=== PATIENT | female | born 1980 | race Caucasian/White ===

== ENCOUNTER → 2024-07-10 07:40 | Outpatient (REF) | payer BC, SELFPAY | LOC: WDC 07:40 | PROVIDERS: ATTENDING PHYSICIAN Obstetrics & Gynecology; FAMILY PHYSICIAN Family Medicine | DX: Z12.31 Encounter for screening mammogram for malignant neoplasm of breast (principal) | CPT/HCPCS: 77063; 77067 ==

== ENCOUNTER 2024-11-24 13:22 | Emergency (ER) | payer BC, SELFPAY ==
[2024-11-24 13:48] VITALS: BP 123/78
--- NOTE | 2024-11-24 13:54 | ED.GENMED ---
ED Provider Triage
<John Menard PA-C - Last Filed: 11/24/24 13:56>
-
Patient seen by provider in Triage?: Seen in Triage
44-year-old female presents with intermittent rapid heart rate over the past several weeks. No recent travel or surgery. She notes occasional chest discomfort. She is not on control. No recent travel or surgery no leg swelling
Physical
: General well-appearing female no acute respiratory distress
Respiratory no increased work of breathing
Neurologic alert normal gait conversing appropriately
Tachycardic at triage but otherwise vital signs are stable we will start with labs EKG troponin D-dimer as well as TSH\\
Patient seen by provider in triage but warrants further assessment
History of Present Illness
<John Menard PA-C - Last Filed: 11/24/24 13:56>
General
Chief Complaint: Heart Rate Problem
Time Seen by Provider: 11/24/24 17:50
<Isa Spicer PA-C - Last Filed: 11/24/24 20:10>
General
Source: patient
Exam Limitations: none
Nursing documentation reviewed up to this point in time: agreed with
History of Present Illness
History of Present Illness:
This is a 44-year-old female with a past medical history of anxiety who presents to the emergency department today concerns of palpitations for the past week or so. Patient states that she noticed palpitations about a week ago when she was talking
to her standing in the kitchen. She looked at her watch and noticed that her heart rate was elevated. This prompted patient to trend her heart rates for that week and she noticed that rarely would her heart rate dropped below 100. Patient
has no history of this prior. Patient reports that she even noticed that when she woke up one morning, her. No heart rate was 120. Her heart rate would even go up to the 140s at rest. She denies any fevers or chills. She states that she has
been taking care of her sick son with pneumonia but denies any cough or flulike symptoms. She states that she called nausea dose on cardiology to schedule appointment and she has an appointment scheduled in 3 days. However, today, she started to
develop chest pain that radiated into the left arm. She called cardiology group to try to get a sooner appointment date told her to report to the emergency department. She denies any associated shortness of breath. She denies any pain or swelling
in her legs. She does not take any oral contraceptives. She denies any recent long distance travel denies any recent surgeries. Her mom has afib and her sons have ASD and pulmonary stenosis, but she otherwise has no family history of cardiac
disease.
Past History
<John Menard PA-C - Last Filed: 11/24/24 13:56>
Past History
ED Past Medical History: None; Negative Asthma, HTN, Hypercholesterolemia or NIDDM
ED Past Surgical History: None
Social History
Tobacco: Non-smoker
Alcohol: Occasional
Personal:
Living: with family
Review of Systems
<Isa Spicer PA-C - Last Filed: 11/24/24 20:10>
Review of Systems
All Other Systems: ROS reviewed and negative except as documented in HPI and ROS
Phy Exam
<Isa Spicer PA-C - Last Filed: 11/24/24 20:10>
Physical Exam
Physical Exam:
General: Patient is well appearing and in no acute distress; non-toxic
Skin: Warm and dry, no rashes or lesions
Head: Normocephalic, atraumatic
Eyes: Sclera non-icteric. EOMs intact.
Cardiac: Tachycardia noted otherwise regular rhythm, no murmurs
Peripheral Vascular: No lower extremity swelling or edema, 2+ DP pulses bilaterally
Pulm: Normal respiratory effort, no wheezes, rales, or rhonchi
Neuro: CN II-XII intact, no focal neurologic deficits.
Psychiatric: Appropriate mood and affect.
Course
<John Menard PA-C - Last Filed: 11/24/24 13:56>
Orders/Labs/Results
Orders:
Orders
11/24/24 13:29
Electrocardiogram (*1) Urgent
Reason for Study: Palpitations
EKG- Treatment ONCE
11/24/24 13:58
Complete Blood Count/With Diff Urgent
Comprehensive Metabolic Panel Urgent
D-Dimer Urgent
HCG, Serum Qualitative Screen Urgent
Comment: ADD ON
TSH Reflex To Free T4 Urgent
11/24/24 15:41
CT Chest PE Study Urgent
Comment:
Reason For Exam: tachycardia, elevated d-dimer
11/24/24 18:42
Troponin I Urgent
11/24/24 19:04
Add On- LAB Urgent
Tests Added?: beta qual
11/24/24 19:15
Test Result ONCE
11/24/24 19:34
Add On- LAB Urgent
Tests Added?: HCG qual (not quant)
11/24/24 19:51
Cardiac Monitoring- Treatment ONCE
Abnormal Lab Results
11/24/24
13:58
RBC 4.06 L 10^6/uL
(4.20-5.40)
Hct 36.9 L %
(37.0-47.0)
MCH 31.5 H pg
(27.0-31.0)
MPV 12.1 H fL
(7.4-10.4)
Absolute Lymphs (auto) 1.0 L 10^3/uL
(1.2-3.4)
Lymphocytes % 16.3 L %
(20.5-51.1)
D-Dimer 0.63 H ug/mlFEU
(0.00-0.50)
Glucose 109 H mg/dl
(70-99)
Albumin 5.1 H g/dl
(3.5-5.0)
11/24/24 13:58
11/24/24 13:58
Vital Signs
Initial and Last Documented VS:
Initial Vital Signs
Temp Pulse Resp BP Pulse Ox
37.2 C 120 16 123/78 98
11/24/24 13:48 11/24/24 13:48 11/24/24 13:48 11/24/24 13:48 11/24/24 13:48
Last Documented Vital Signs
Temp Pulse Resp BP Pulse Ox
37.2 C 101 15 109/79 95
11/24/24 13:48 11/24/24 21:00 11/24/24 21:00 11/24/24 21:56 11/24/24 21:56
Kunlt;Isa Spicer PA-C - Last Filed: 11/24/24 20:10>
Orders/Labs/Results
Orders:
Orders
11/24/24 13:29
Electrocardiogram (*1) Urgent
Reason for Study: Palpitations
EKG- Treatment ONCE
11/24/24 13:58
Complete Blood Count/With Diff Urgent
Comprehensive Metabolic Panel Urgent
D-Dimer Urgent
HCG, Serum Qualitative Screen Urgent
Comment: ADD ON
TSH Reflex To Free T4 Urgent
11/24/24 15:41
CT Chest PE Study Urgent
Comment:
Reason For Exam: tachycardia, elevated d-dimer
11/24/24 18:42
Troponin I Urgent
11/24/24 19:04
Add On- LAB Urgent
Tests Added?: beta qual
11/24/24 19:15
Test Result ONCE
11/24/24 19:34
Add On- LAB Urgent
Tests Added?: HCG qual (not quant)
11/24/24 19:51
Cardiac Monitoring- Treatment ONCE
Abnormal Lab Results
11/24/24
13:58
RBC 4.06 L 10^6/uL
(4.20-5.40)
Hct 36.9 L %
(37.0-47.0)
MCH 31.5 H pg
(27.0-31.0)
MPV 12.1 H fL
(7.4-10.4)
Absolute Lymphs (auto) 1.0 L 10^3/uL
(1.2-3.4)
Lymphocytes % 16.3 L %
(20.5-51.1)
D-Dimer 0.63 H ug/mlFEU
(0.00-0.50)
Glucose 109 H mg/dl
(70-99)
Albumin 5.1 H g/dl
(3.5-5.0)
11/24/24 13:58
11/24/24 13:58
Vital Signs
Initial and Last Documented VS:
Initial Vital Signs
Temp Pulse Resp BP Pulse Ox
37.2 C 120 16 123/78 98
11/24/24 13:48 11/24/24 13:48 11/24/24 13:48 11/24/24 13:48 11/24/24 13:48
Last Documented Vital Signs
Temp Pulse Resp BP Pulse Ox
37.2 C 101 15 109/79 95
11/24/24 13:48 11/24/24 21:00 11/24/24 21:00 11/24/24 21:56 11/24/24 21:56
Kunlt;Justin Bentley, DO - Last Filed: 11/25/24 01:50>
Orders/Labs/Results
Orders:
Orders
11/24/24 13:29
Electrocardiogram (*1) Urgent
Reason for Study: Palpitations
EKG- Treatment ONCE
11/24/24 13:58
Complete Blood Count/With Diff Urgent
Comprehensive Metabolic Panel Urgent
D-Dimer Urgent
HCG, Serum Qualitative Screen Urgent
Comment: ADD ON
TSH Reflex To Free T4 Urgent
11/24/24 15:41
CT Chest PE Study Urgent
Comment:
Reason For Exam: tachycardia, elevated d-dimer
11/24/24 18:42
Troponin I Urgent
11/24/24 19:04
Add On- LAB Urgent
Tests Added?: beta qual
11/24/24 19:15
Test Result ONCE
11/24/24 19:34
Add On- LAB Urgent
Tests Added?: HCG qual (not quant)
11/24/24 19:51
Cardiac Monitoring- Treatment ONCE
Abnormal Lab Results
11/24/24
13:58
RBC 4.06 L 10^6/uL
(4.20-5.40)
Hct 36.9 L %
(37.0-47.0)
MCH 31.5 H pg
(27.0-31.0)
MPV 12.1 H fL
(7.4-10.4)
Absolute Lymphs (auto) 1.0 L 10^3/uL
(1.2-3.4)
Lymphocytes % 16.3 L %
(20.5-51.1)
D-Dimer 0.63 H ug/mlFEU
(0.00-0.50)
Glucose 109 H mg/dl
(70-99)
Albumin 5.1 H g/dl
(3.5-5.0)
11/24/24 13:58
11/24/24 13:58
Vital Signs
Initial and Last Documented VS:
Initial Vital Signs
Temp Pulse Resp BP Pulse Ox
37.2 C 120 16 123/78 98
11/24/24 13:48 11/24/24 13:48 11/24/24 13:48 11/24/24 13:48 11/24/24 13:48
Last Documented Vital Signs
Temp Pulse Resp BP Pulse Ox
37.2 C 101 15 109/79 95
11/24/24 13:48 11/24/24 21:00 11/24/24 21:00 11/24/24 21:56 11/24/24 21:56
<Isa Spicer PA-C - Last Filed: 11/24/24 20:10>
MDM/Problems Addressed
Differential Diagnosis Includes:
ddx include PE, anxiety, PVCs, PACs, costochondritis, hypothyroid
MDM/Problems Addressed:
44-year-old female presents emergency department today with concerns of chest pain and tachycardia. She denies any recent surgeries any recent long distance travel, any oral contraceptive use, any redness or swelling in her legs or pain with
ambulation. She had an elevated D-dimer in triage. EKG shows sinus tachycardia but no PVCs, no PACs. Will send for CAT scan to rule out pulmonary embolism.
Chronic conditions affecting care:
n/a
Acute Exacerbation and/or Progression of Chronic Illness:
n/a
<Isa Spicer PA-C - Last Filed: 11/24/24 20:10>
*Pulse Oximetry
Patient hypoxic: no
*EKG
Interpreted by ED Provider?: Yes
EKG Intrepretation Date: 11/24/24
Interpretation: abnormal
Comparison EKG: no comparison EKG present
Heart Rate: 114
Rate: normal
Rhythm: sinus
[place]: normal axis
QRS Pattern: normal QRS
*Critical Care Note
Total Time (30-74mins, 75-104mins- exclusive of procedures): Not Applicable
Data Reviewed
Review of Other/Old Records Reveals: Records (Reviewed ER physician documentation from 01/30/2022 patient seen for lower abdominal pain and discharge) and Discharge Summary (No distress oriented [facility] to [facility])
Source: patient and records
<Isa Spicer PA-C - Last Filed: 11/24/24 20:10>
Update Note
Update Note:
8:10 pm--Dr. Bentley to reassess patient and follow up on CT scan results
ED Attending Note
<John Menard PA-C - Last Filed: 11/24/24 13:56>
-
Portions of this chart may have been created with voice recognition software.� Occasional wrong word or��sound alike� substitutions may have occurred due to the inherent limitations of voice recognition software.
<Justin Bentley DO - Last Filed: 11/25/24 01:50>
ED Attending Note
Patient seen and examined by attending physician: Yes
I performed the substantive portion of visit, reviewed & personally made and approve the management plan that is documented in note by myself or DARREN.: Yes
ED Attending Note:
I evaluated the patient at bedside. CTA negative for PE. Heart rate 98 on my assessment. She overall feels spontaneously improved. She has an appoint to see cardiology in 4 days.
Discharge Plan
Departure
Patient Disposition: Home (Routine Discharge)
Date of Disposition: 11/24/24
Time of Disposition: 21:50
Patient with high blood pressure during this ER visit?: Yes
Condition: Good
Discharge Problem:
Sinus tachycardia, Chest pain
Instructions: Palpitations (DC), BLOOD PRESSURE, Chest Pain
Referrals:
Osorio Hurd MD [Family Provider] -
Activity Restrictions/Additional Instructions:
Please follow-up with your cardiology appointment as scheduled in 4 days.
Please return should you develop an acute worsening of your symptoms, shortness of breath, lightheadedness, dizziness, fainting spells, or any other signs or symptoms concerning to you.
Interventions
Interventions:
*Risk Screen - Suicide Last Done: 11/24/24 13:48
*Neglect/Abuse Screening Last Done: 11/24/24 13:48
*Nursing Disposition Last Done: 11/24/24 21:59
ED- Cardiac Assessment Last Done: 11/24/24 18:44
ED- Pulmonary Assessment Last Done: 11/24/24 18:44
Discharge Date and Time
Discharge Date/Time: 11/24/24 21:59
Print Language: GREEK
[2024-11-24 14:17] LABS: % Basophils 0.7 % (0-2); % Eosinophils 1.5 % (0-6); % Immature Granulocytes 0.2 % (0-0.5); % Lymphocytes 16.3 % (20.5-51.1); % Neutrophils 73.3 % (42.2-75.2); Absolute Eosinophils 0.1 10^3/uL (0-0.7); Absolute Monocytes 0.5 10^3/uL (0.1-0.6); Absolute Neutrophils 4.5 10^3/uL (1.4-6.5); Hematocrit 36.9 % (37.0-47.0); Hemoglobin 12.8 g/dL (12.0-16.0); Mean Corp Hgb Conc. 34.7 g/dL (33.0-37.0); Mean Corpuscular Hgb 31.5 pg (27.0-31.0); Mean Corpuscular Volume 90.9 fL (81.0-99.0); Mean Platelet Volume 12.1 fL (7.4-10.4); Nucleated Red Blood Cells % 0 %; Platelet Count 169 10^3/uL (130-400); Red Blood Cell Count 4.06 10^6/uL (4.20-5.40); Red Cell Dist. Width 12.2 % (11.5-14.5); White Blood Cell Count 6.1 10^3/uL (4.8-10.8)
[2024-11-24 14:28] LABS: ALT (SGPT) 12 U/L (0-35); AST (SGOT) 22 U/L (14-36); Albumin 5.1 g/dl (3.5-5.0); Alkaline Phosphatase 55 U/L (38-126); Blood Urea Nitrogen 11 mg/dl (7-17); Calcium 9.1 mg/dl (8.4-10.2); Carbon Dioxide 24 mmol/L (22-30); Chloride 101 mmol/L (98-107); Glucose 109 mg/dl (70-99); Potassium 3.8 mmol/L (3.5-5.1); Sodium 137 mmol/L (135-145); Total Bilirubin 0.5 mg/dl (0.2-1.3); Total Protein 8.1 g/dl (6.3-8.2); eGFR > 60.00
[2024-11-24 14:51] LABS: D-Dimer 0.63 ug/mlFEU (0.00-0.50)
[2024-11-24 15:34] LABS: TSH Reflex To Free T4 0.99 uIU/ml (0.47-4.68)
[2024-11-24 16:57] VITALS: BP 139/86
[2024-11-24 19:15] LABS: Troponin I < 0.012 ng/ml
[2024-11-24 19:48] LABS: HCG, Serum Qualitative Screen Negative
[2024-11-24 20:37] VITALS: BP 98/69
[2024-11-24 21:00] VITALS: BP 98/74
[2024-11-24 21:56] VITALS: BP 109/79
== END 2024-11-24 21:59 | disposition home or self-care (01) ==
LOC: EMR 13:22
PROVIDERS: Physician Assistant; EMERGENCY PHYSICIAN Emergency Medicine; FAMILY PHYSICIAN Family Medicine
DX: R07.9 Chest pain, unspecified (principal); R00.0 Tachycardia, unspecified
CPT/HCPCS: 99284; 71275; 80053; 84443; 84484; 84703; 85025; 85379; 93005; Q9967

== ENCOUNTER 2024-11-28 04:05 | Emergency (ER) | payer BC, SELFPAY ==
[2024-11-28 05:00] VITALS: BP 127/79
--- NOTE | 2024-11-28 05:20 | ED.GENMED ---
History of Present Illness
General
Chief Complaint: Chest Pain
Source: patient
Exam Limitations: none
Time Seen by Provider: 11/28/24 04:45
Nursing documentation reviewed up to this point in time: agreed with
History of Present Illness
History of Present Illness:
Pleasant 44-year-old female presents to the emergency department with chest pain. She states that she has had chest pain for a week. She is concerned because her heart rate has been elevated sporadically for over a week. Patient states that she
is mostly concerned about the palpitations but she occasionally does have some chest pain. Patient does suffer from anxiety and feels that anxiety may be playing a role in this patient was seen in the emergency department on November 24, and had a
full workup including CT scan of the chest. She did have an appointment for this morning, cardiology but states that it had to be switched to Sunday so she came into the emergency department evaluate patient. She states that her symptoms have not
improved but also have not worsened. She states that they are about the same. Patient states that her caffeine intake is about a cup per day and has not increase that. She is not on any new medications. She does not smoke. She states that she
frequently looks at her watch which shows that her heart rate is elevated. Patient reports no musculoskeletal pain. Denies pain in her lower extremities. Patient reports no shortness of breath. Denies taking any hormonal therapy or oral
contraceptives. Patient reports no recent hemoptysis. Denies any recent surgery or long distance travel. She states that both of her sons have congenital heart defects but she does not. She is and her is present at the bedside.
Past History
Past History
ED Past Medical History: None; Negative Asthma, HTN, Hypercholesterolemia or NIDDM
ED Past Surgical History: None
Social History
Tobacco: Non-smoker
Alcohol: Occasional
Personal:
Living: with family
Review of Systems
Review of Systems
Allergies reviewed?: Yes
All Other Systems: ROS reviewed and negative except as documented in HPI and ROS
Constitutional: Reports no symptoms
EENT: Reports no symptoms
Respiratory: Reports no symptoms
Cardiac: Reports palpitations
ABD/GI: Reports no symptoms
: Reports no symptoms
Musculoskeletal: Reports no symptoms
Skin: Reports no symptoms
Neurological: Reports no symptoms
Endocrine: Reports no symptoms
Hematologic/Lymphatic: Reports no symptoms
Psychiatric: Reports no symptoms
Phy Exam
General Physical Exam
General Presentation: well appearing and no apparent distress
General Skin: warm and dry
General Habitus: normal
General Mental: alert
General Hydration: appears well hydrated
ENT Exam
ENT Exam: EOMI, pharynx normal, neck supple and normocephalic
Eye Exam
Eye Exam: PERRL, cornea clear and conjunctiva normal
Cardiovascular Exam
Cardiovascular Exam: regular rate/rhythm, no edema, no murmur, normal peripheral pulses and tachycardia
Pulmonary Exam
Pulmonary Exam: lungs clear, no respiratory distress, no rales, no crackles, no rhonchi, no stridor, no wheezing and no cough
Gastrointestinal Exam
Gastrointestinal Exam: normal bowel sounds, non tender, soft, no organomegaly, no pulsatile mass and non distended
Neurological Exam
Neurological Exam: alert, oriented x3, no motor deficits and speech normal
Musculoskeletal Exam
Musculoskeletal Exam: full ROM and no edema
Skin Exam
Skin Exam: normal color, warm/dry, no rash and no petechia
Psychiatric Exam
Psychiatric Exam: normal mood/affect
Scores
Heart Score for Chest Pain Patients
STEMI patient?: Not applicable
Course
Orders/Labs/Results
Orders:
Orders
11/28/24 04:12
EKG [Electrocardiogram (*1)] Urgent
Reason for Study: Chest Pain
Other Reason for Exam: tachycardia
EKG- Treatment ONCE
11/28/24 05:20
Test Result ONCE
11/28/24 05:25
Comprehensive Metabolic Panel Urgent
HCG, Serum Qualitative Screen Urgent
TSH Urgent
Troponin I Urgent
11/28/24 05:26
Complete Blood Count/With Diff Urgent
Abnormal Lab Results
11/28/24 11/28/24
05: 05:26
RBC 4.12 L 10^6/uL
(4.20-5.40)
MCH 31.3 H pg
(27.0-31.0)
MPV 12.1 H fL
(7.4-10.4)
Glucose 100 H mg/dl
(70-99)
11/28/24 05:26
11/28/24 05:25
Vital Signs
Initial and Last Documented VS:
Initial Vital Signs
Pulse Pulse Ox
111 100
11/28/24 04:07 11/28/24 04:07
Last Documented Vital Signs
Temp Pulse Resp BP Pulse Ox
98.5 F 87 16 118/76 98
11/28/24 04:15 11/28/24 06:00 11/28/24 06:00 11/28/24 06:00 11/28/24 06:00
*Critical Care Note
Total Time (30-74mins, 75-104mins- exclusive of procedures): Not Applicable
Update Note
Update Note:
CAT scan from 11/24/2024 FINDINGS:
There is no pulmonary embolism.
There is no aortic dissection.
There is no pneumothorax.
There are no abnormal pleural or parenchymal masses.
There is no pleural effusion.
There is no significant parenchymal airspace disease.
The mediastinum is normal.
There is no hilar or mediastinal lymphadenopathy.
There is no axillary lymphadenopathy.
No significant osseous abnormalities are demonstrated.
IMPRESSION:
No acute disease of the chest. No evidence of pulmonary embolus.
ED Attending Note
-
Portions of this chart may have been created with voice recognition software.� Occasional wrong word or��sound alike� substitutions may have occurred due to the inherent limitations of voice recognition software.
Discharge Plan
Departure
Patient Disposition: Home (Routine Discharge)
Date of Disposition: 11/28/24
Time of Disposition: 06:39
Patient with high blood pressure during this ER visit?: No
Condition: Good
Discharge Problem:
Chest pain
Instructions: Chest Pain PCP Follow Up
Referrals:
Osorio Hurd MD [Family Provider] -
Activity Restrictions/Additional Instructions:
Please keep your previously scheduled appointment with cardiology
It was a pleasure meeting you and taking part in your care. We hope for your continued healing and wellness.
Please read discharge instructions in their entirety. However, they are for general education and may not describe your exact diagnosis at discharge. Information on your ER visit and medical conditions were discussed with you along with appropriate
follow up information...
If indicated, please take your medications as instructed and indicated on discharge paperwork.
Please schedule a follow up appointment as directed. Call to schedule an appointment
Please return to the emergency department with ANY change in, persisting, or worsening of symptoms. If any of your symptoms do not improve, or persist, or become more severe within 6-12 hours, please return to the emergency department for further
care.
Please return to the emergency department if you develop a headache, neck pain/stiffness, fever greater than 100.4F, chest pain, shortness of breath, persistent nausea, vomiting, slurred speech, difficulty walking, numbness/tingling, weakness, signs
of infection or any other symptoms that are worrisome to you.
If you have any questions or concerns please do not hesitate to call the Hospital at or E-mail me directly at [email or web address]
Interventions
Interventions:
*Risk Screen - Suicide Last Done: 11/28/24 04:07
*General Assessment Last Done: 11/28/24 06:12
*Neglect/Abuse Screening Last Done: 11/28/24 06:12
ED- Fall Risk Assessment Last Done: 11/28/24 05:03
*ED COVID-19 Vaccine History Last Done: 11/28/24 06:12
ED- Cardiac Assessment Last Done: 11/28/24 05:03
Discharge Date and Time
Print Language: HONDURAN
[2024-11-28 05:38] LABS: % Basophils 0.9 % (0-2); % Eosinophils 4.9 % (0-6); % Immature Granulocytes 0.3 % (0-0.5); % Lymphocytes 25.9 % (20.5-51.1); Absolute Basophils 0.1 10^3/uL (0-0.2); Absolute Eosinophils 0.3 10^3/uL (0-0.7); Absolute Lymphocytes 1.7 10^3/uL (1.2-3.4); Absolute Monocytes 0.5 10^3/uL (0.1-0.6); Hematocrit 37.9 % (37.0-47.0); Hemoglobin 12.9 g/dL (12.0-16.0); Mean Corpuscular Hgb 31.3 pg (27.0-31.0); Mean Platelet Volume 12.1 fL (7.4-10.4); Nucleated Red Blood Cells % 0 %; Platelet Count 180 10^3/uL (130-400); Red Blood Cell Count 4.12 10^6/uL (4.20-5.40); White Blood Cell Count 6.5 10^3/uL (4.8-10.8)
[2024-11-28 05:48] LABS: HCG, Serum Qualitative Screen Negative
[2024-11-28 05:55] LABS: ALT (SGPT) 11 U/L (0-35); AST (SGOT) 21 U/L (14-36); Albumin 4.5 g/dl (3.5-5.0); Alkaline Phosphatase 53 U/L (38-126); Blood Urea Nitrogen 13 mg/dl (7-17); Calcium 9.2 mg/dl (8.4-10.2); Carbon Dioxide 26 mmol/L (22-30); Chloride 99 mmol/L (98-107); Glucose 100 mg/dl (70-99); Potassium 4.1 mmol/L (3.5-5.1); Sodium 137 mmol/L (135-145); Total Bilirubin 0.6 mg/dl (0.2-1.3); Total Protein 6.7 g/dl (6.3-8.2); eGFR > 60.00
[2024-11-28 06:00] VITALS: BP 118/76
[2024-11-28 06:06] LABS: Troponin I < 0.012 ng/ml
[2024-11-28 06:36] LABS: TSH 4.62 uIU/ml (0.47-4.68)
== END 2024-11-28 06:45 | disposition home or self-care (01) ==
LOC: EMR 04:05
PROVIDERS: EMERGENCY PHYSICIAN Student in an Organized Health Care Education/Training Program; FAMILY PHYSICIAN Family Medicine
DX: R07.89 Other chest pain (principal); F41.9 Anxiety disorder, unspecified
CPT/HCPCS: 99284; 80053; 84443; 84484; 84703; 85025; 93005

== ENCOUNTER → 2024-12-26 13:55 | Outpatient (REF) | payer BC, SELFPAY | LOC: RCS 13:55 | PROVIDERS: ATTENDING PHYSICIAN Internal Medicine Cardiovascular Disease; FAMILY PHYSICIAN Family Medicine | DX: R07.89 Other chest pain (principal); R06.02 Shortness of breath | CPT/HCPCS: 93306 ==

== ENCOUNTER → 2024-12-29 07:36 | Outpatient (REF) | payer BC, SELFPAY | LOC: RCS 07:36 | PROVIDERS: ATTENDING PHYSICIAN Internal Medicine Cardiovascular Disease; FAMILY PHYSICIAN Family Medicine | DX: R07.89 Other chest pain (principal); R06.02 Shortness of breath | CPT/HCPCS: 93017 ==

== ENCOUNTER → 2025-07-14 07:30 | Outpatient (REF) | payer BC, SELFPAY | LOC: WDC 07:30 | PROVIDERS: ATTENDING PHYSICIAN Obstetrics & Gynecology | DX: Z12.31 Encounter for screening mammogram for malignant neoplasm of breast (principal) | CPT/HCPCS: 77063; 77067 ==